=== PATIENT | female | born 1945 | race Caucasian/White ===

== ENCOUNTER → 2018-10-03 | Outpatient (CLI) | payer OTHER | LOC: M.RAD 09-28 13:28 | DX: Z12.31 Encounter for screening mammogram for malignant neoplasm of breast (principal); E11.9 Type 2 diabetes mellitus without complications; Z78.0 Asymptomatic menopausal state; Z90.710 Acquired absence of both cervix and uterus ==

== ENCOUNTER 2019-02-12 08:39 | Observation (INO) | payer OTHER ==
[~2019-02-12] VITALS: Ht 170.2 cm; Wt 95.3 kg
[2019-02-12 08:57] VITALS: BP 169/100
[2019-02-12] MEDS ORDERED: METFORMIN HCL500 M3 PO (09:00)
[2019-02-12] MEDS ORDERED: CRESTOR10 MG PO (09:00)
[2019-02-12 09:20] LABS: URINE BILIRUBIN NEGATIVE (Negative); URINE BLOOD NEGATIVE (Negative); URINE CLARITY CLEAR; URINE COLOR YELLOW; URINE GLUCOSE-RANDOM NEGATIVE (Negative); URINE KETONES NEGATIVE (Negative); URINE LEUKOCYTES-REFLEX 1+ (Negative); URINE NITRITE-REFLEX NEGATIVE (Negative); URINE PROTEIN NEGATIVE (Negative); URINE UROBILINOGEN 0.2 E.U./dl (0.2-1.0)
[2019-02-12 09:28] LABS: BACTERIA-REFLEX 1-9 Few /HPF (None Seen); CASTS None Seen /LPF (None Seen); CRYSTALS None Seen /LPF (None Seen); MUCUS None Seen strn/LPF (None Seen); SQUAMOUS 0-3 Few /LPF (0-3); URINE RBC 0-2 Rare /HPF (0-2); URINE WBC-REFLEX 0-5 Rare /HPF (0-5)
[2019-02-12 09:51] LABS: ABSOLUTE EOSINOPHILS 0.1 thou/uL (0.0-0.7); ABSOLUTE LYMPHOCYTES 1.4 thou/uL (0.8-5.3); ABSOLUTE MONOCYTES 0.5 thou/uL (0.0-1.2); ABSOLUTE NEUTROPHILS 3.1 thou/uL (1.6-8.1); BASOPHILS 0.5 %; HEMATOCRIT 36.7 % (37.0-47.0); HEMOGLOBIN 12.5 gm/dL (12.0-15.0); LYMPHOCYTES 26.9 %; MCH 32.3 pg (26.0-34.0); MONOCYTES 9.5 %; MPV 7.5 fl. (7.2-11.1); NUCLEATED RBCS 0 /100WBC; PLATELET COUNT* 198 thou/uL (150-400); POLYS 61.1 %; RBC 3.87 mil/uL (4.20-5.00); RDW-CV 13.1 % (10.5-14.5); WBC 5.1 thou/uL (4.0-11.0)
[2019-02-12 10:06] LABS: CALCIUM 9.7 mg/dL (8.5-10.1); CREATININE 1.7 mg/dL (0.6-1.3); POTASSIUM 4.3 mmol/L (3.5-5.1)
[2019-02-12 10:11] LABS: ALBUMIN 4.2 g/dL (3.4-5.0); TOTAL BILIRUBIN 0.4 mg/dL (<0.1-1.0); TOTAL PROTEIN 7.7 g/dL (6.4-8.2)
[2019-02-12 12:09] VITALS: BP 158/86
[2019-02-12 12:29] VITALS: BP 162/74
--- NOTE | 2019-02-12 13:10 | NUR ---
PT ADMITTED TO UNIT WITH ABD PAIN, PT STATES PAIN MEDS NOT WORKING, WILL MONITOR EFFECT MEDS KICK IN. PT ORIENTED TO ROOM. FALL RISK PRECAUTIONS IN PLACE. WILL CONTINUE TO MONITOR.
--- NOTE | 2019-02-12 17:11 | NUR ---
pt remained alert and oriented. pt resting in bed. pain meds given as ordered. fall risk precautions in place. hourly rounding completed. will continue to monitor.
[2019-02-12 17:54] VITALS: BP 139/59
[2019-02-12 19:40] VITALS: BP 156/61
--- NOTE | 2019-02-13 05:42 | NUR ---
PT ALERT AND ORIENTED. VSS ON RA. PAIN MEDS GIVEN THIS SHIFT. PT UP AD BETTIE. PT SLEPT WELL THIS SHIFT. PT DENIES N/V THIS SHIFT. FALL PRECAUTION IN PLACE. CALL LIGHT WITHIN REACH. HOURLY ROUNDINGS MADE. WILL CONTINUE TO MONITOR.
[2019-02-13 07:40] VITALS: BP 136/51
--- NOTE | 2019-02-13 12:00 | NUR ---
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 SHE DENIED ANY DISCHARGE NEEDS. STATED SHE IS INDEPENDENT AT HOME. DRIVES, AND WORKS A MASSAGE THERAPIST.
--- NOTE | 2019-02-13 13:08 | EKG ---
[place] [address] ELECTROCARDIOGRAM REPORT Name: VARUNANDRÉS [id number] Admission: 02/12/19 Attend Phys: Hema Cedeno Discharge: Date of : 43 Report #: [id number] THIS REPORT FOR: //name// [facility] ED Test Date: 2019-02-12 Test Time: 09:24:41 Pat Name: ANDRÉS BOND Department: Room: [facility] Gender: F Orthopedic Podiatrist: : 1945 Requested By: Chirag Hoover Order Number: [id number] MD: Adrian Hanson Measurements Intervals [place] Rate: 70 P: 47 AR: 168 QRS: 10 QRSD: 142 T: 97 QT: 426 QTc: 460 Interpretive Statements Sinus rhythm Left bundle branch block No previous ECG available for comparison Electronically Signed On 02-13-2019 13:07:34 INTERPRETER TRANSLATOR by Adrian Hanson [email or web address] <ELECTRONICALLY SIGNED> By: Adrian Hanson MD, [facility] 02/13/19 1307 3 3 Adrian Hanson MD, FACC /EPI
[2019-02-13] MEDS ORDERED: MACROBID 100 M100 MG PO (15:08)
[2019-02-13] MEDS ORDERED: ZOFRAN ODT4 MG DISSOLVE (15:15)
[2019-02-13] MEDS ORDERED: NORCO 5-325 TA1 EAC1 PO (15:15)
[2019-02-13] MEDS ORDERED: FLOMAX0.4 MG PO (15:15)
[2019-02-13 15:29] VITALS: BP 136/51
[2019-02-13 16:10] VITALS: BP 136/51
== END 2019-02-13 15:50 | disposition home or self-care (01) ==
LOC: M.ERS 08:39 → M.3W 10:32 → M.TBA-ER 10:32 → M.3W 12:08
PROVIDERS: Emergency Medicine; ADMIT Family Medicine
DX: N39.0 Urinary tract infection, site not specified (principal); E87.2 Acidosis; M19.90 Unspecified osteoarthritis, unspecified site; R19.7 Diarrhea, unspecified; E11.9 Type 2 diabetes mellitus without complications; E78.5 Hyperlipidemia, unspecified; Z87.442 Personal history of urinary calculi; Z23 Encounter for immunization

== ENCOUNTER → 2019-12-06 | Outpatient (CLI) | payer OTHER ==
[~2019-12-06] MED LIST: CRESTOR10 MG PO; FLOMAX0.4 MG PO; MACROBID 100 M100 MG PO; METFORMIN HCL500 M3 PO; NORCO 5-325 TA1 EAC1 PO; ZOFRAN ODT4 MG DISSOLVE
== END ==
LOC: M.ULTRA 06:46
PROVIDERS: ATTEND Family Medicine
DX: E11.22 Type 2 diabetes mellitus with diabetic chronic kidney disease (principal); I12.9 Hypertensive chronic kidney disease with stage 1 through stage 4 chronic kidney disease, or unspecified chronic kidney disease; N18.4 Chronic kidney disease, stage 4 (severe)

== ENCOUNTER → 2019-12-18 | Outpatient (CLI) | payer OTHER ==
--- NOTE | ~2019-12-18 | SLEEP ---
[address] [address] SLEEP STUDY REPORT Name: ANDRÉS BOND Room: [facility]#: [id number] Admission: 12/18/19 Attend Phys: Judson Diaz DO Discharge: Date of : 43 Report #: [id number] THIS REPORT FOR: //name// cc: Judson Diaz Adam J DO ~ CC: Judson Diaz This study has been reviewed in its entirety by a board certified sleep specialist DATE OF SERVICE: 12/18/2019 HOME SLEEP STUDY INTERPRETATION: Total duration of the study is 459 minutes out of which she was asleep for 298 minutes with an overall sleep efficiency decreased to 65%. Sleep onset occurred around 20 minutes after lying down in bed. N1 sleep duration was 4%, N2 duration was 62%, N3 duration was 10% and REM duration was 25%. We did record multiple sleep related respiratory events. These included 2 obstructive apneas in addition to 35 hypopneas and 25 respiratory effort related arousals. The overall apnea-hypopnea index was 7.4. Body position data indicates the patient was observed in the supine position for 119 minutes sleep. The rest of the time, the patient was in other positions. Supine apnea/hypopnea index is higher at 13.1. Mean heart rate was 59. Periodic limb movement index is mildly elevated to 17.7. Most limb movements, however, are not associated with arousals. Arousal index is mildly elevated at 20. There are also occasional desaturations recorded. The patient overall spent 14.9 minutes below an O2 saturation of 88%. IMPRESSION: Obstructive sleep apnea with an apnea-hypopnea index of 7.4 with mild nocturnal hypoxemia. The patient spent 14.9 minutes below an O2 saturation of 88%. RECOMMENDATIONS: By: [id number] Keita MD /nt
== END ==
LOC: M.SLEEPLAB 19:20
PROVIDERS: ATTEND Family Medicine
DX: G47.33 Obstructive sleep apnea (adult) (pediatric) (principal)

== ENCOUNTER → 2020-01-14 | Outpatient (CLI) | payer OTHER ==
[2020-01-14 15:13] LABS: URINE BILIRUBIN NEGATIVE (Negative); URINE BLOOD NEGATIVE (Negative); URINE CLARITY CLEAR; URINE COLOR YELLOW; URINE GLUCOSE-RANDOM NEGATIVE (Negative); URINE KETONES TRACE (Negative); URINE LEUKOCYTES 1+ (Negative); URINE NITRITE NEGATIVE (Negative); URINE PROTEIN NEGATIVE (Negative); URINE SPECIFIC GRAVITY 1.025 (1.005-1.030); URINE UROBILINOGEN 0.2 E.U./dl (0.2-1.0)
[2020-01-14 15:26] LABS: ALBUMIN 4.3 g/dL (3.4-5.0); CALCIUM 10.1 mg/dL (8.5-10.1); PHOSPHORUS* 4.4 mg/dL (2.5-4.9); POTASSIUM 4.9 mmol/L (3.5-5.1)
[2020-01-14 15:28] LABS: HYALINE CASTS >10 Many /LPF (None Seen); MUCUS 0-3 Light strn/LPF (None Seen); SQUAMOUS >10 Many /LPF (0-3)
[2020-01-14 15:29] LABS: BACTERIA 1-9 Few /HPF (None Seen); CRYSTALS None Seen /LPF (None Seen); URINE WBC 6-15 Few /HPF (0-5)
[2020-01-14 15:31] LABS: URINE RBC None Seen /HPF (0-2)
[2020-01-14 15:48] LABS: CALCIUM 9.9 mg/dL (8.5-10.1); CREATININE 2.1 mg/dL (0.6-1.3); PHOSPHORUS* 4.5 mg/dL (2.5-4.9)
[2020-01-15 02:06] LABS: IgA 40 mg/dL (64-422); IgG 1139 mg/dL (586-1602); IgM 69 mg/dL (26-217)
[2020-01-15 14:07] LABS: KAPPA FREE LIGHT CHAINS 133.5 mg/L (3.3-19.4); LAMBDA FREE LIGHT CHAINS 12.9 mg/L (5.7-26.3)
[2020-01-16 21:05] LABS: GLOBULIN TOTAL 3.6 g/dL (2.2-3.9); M-SPIKE 0.5 g/dL (Not Observed)
== END ==
LOC: M.LAB 14:30
PROVIDERS: ATTEND Internal Medicine Nephrology
DX: N17.9 Acute kidney failure, unspecified (principal)

== ENCOUNTER → 2020-03-06 | Outpatient (CLI) | payer OTHER | LOC: M.ULTRA 13:00 | PROVIDERS: ATTEND Internal Medicine Nephrology | DX: N17.9 Acute kidney failure, unspecified (principal) ==

== ENCOUNTER → 2020-06-25 | Outpatient (CLI) | payer OTHER ==
[2020-06-25 13:59] LABS: URINE BILIRUBIN NEGATIVE (Negative); URINE BLOOD NEGATIVE (Negative); URINE CLARITY CLEAR; URINE COLOR YELLOW; URINE GLUCOSE-RANDOM 2+ (Negative); URINE KETONES NEGATIVE (Negative); URINE LEUKOCYTES-REFLEX NEGATIVE (Negative); URINE NITRITE-REFLEX NEGATIVE (Negative); URINE PROTEIN NEGATIVE (Negative); URINE SPECIFIC GRAVITY 1.015 (1.005-1.030); URINE UROBILINOGEN 0.2 E.U./dl (0.2-1.0)
[2020-06-25 14:05] LABS: CALCIUM 9.3 mg/dL (8.5-10.1); CREATININE 1.6 mg/dL (0.6-1.3); PHOSPHORUS* 3.8 mg/dL (2.5-4.9); POTASSIUM 4.3 mmol/L (3.5-5.1)
[2020-06-25 14:08] LABS: CALCIUM 9.1 mg/dL (8.5-10.1); CREATININE 1.7 mg/dL (0.6-1.3); PHOSPHORUS* 3.8 mg/dL (2.5-4.9)
[2020-06-25 21:06] LABS: IgA 48 mg/dL (64-422); IgG 1091 mg/dL (586-1602); IgM 67 mg/dL (26-217)
[2020-06-27 16:06] LABS: KAPPA FREE LIGHT CHAINS 110.3 mg/L (3.3-19.4)
[2020-06-27 17:06] LABS: GLOBULIN TOTAL 3.3 g/dL (2.2-3.9); M-SPIKE 0.9 g/dL (Not Observed)
== END ==
LOC: M.LAB 13:26
PROVIDERS: ATTEND Internal Medicine Nephrology
DX: E83.52 Hypercalcemia (principal); N17.9 Acute kidney failure, unspecified